=== PATIENT | female | born 2000 | race African-American/Black ===

== ENCOUNTER → 2020-09-08 08:03 | Outpatient (CLI) | payer OTHER, SELFPAY ==
[2020-09-08 18:42] LABS: SARS-CoV-2 RNA PCR Negative
== END ==
PROVIDERS: PCP Family Medicine; Visit Provider Physician Assistant
DX: Z20.822 Contact with and (suspected) exposure to COVID-19 (principal); R50.9 Fever, unspecified
CPT/HCPCS: C9803; U0003; U0005